=== PATIENT | female | born 1995 | race Hispanic/Latino ===

== ENCOUNTER 2022-05-29 12:39 | Outpatient (CLI) | payer OTHER, SELFPAY ==
[2022-06-02 14:46] LABS: CMV IgG Antibody <0.60 U/mL (<0.60)
== END 2022-05-29 12:40 | disposition home or self-care (01) ==
LOC: ANHLAB 12:41
PROVIDERS: Visit Provider Student in an Organized Health Care Education/Training Program
DX: N91.2 Amenorrhea, unspecified (principal)
CPT/HCPCS: 36415; 86644; 86747; 86787

== ENCOUNTER 2022-06-16 13:37 | Emergency (ER) | payer OTHER, SELFPAY ==
--- NOTE | 2022-06-16 13:43 | ED.DIZZY ---
HPI - Dizziness General Chief Complaint: Dizziness Stated Complaint: Dizziness/Vomiting/ Time Seen by Provider: 06/16/22 13:43 Source: patient Mode of arrival: ambulatory Limitations: no limitations History of Present Illness HPI Narrative: Carlita is a 27-year-old female patient presenting to the clinic today with complaints of dizziness, nausea, vomiting, headache, slight sore throat, and congestion. She reports she feels as though the room is spinning. She denies any chest pain or shortness of breath. No known fever or chills. Related Data Home Medications Medication Instructions Recorded Confirmed prenat.vits,naila,ddc-jopf-qxheg 1 tablet PO DAILY 03/18/22 06/16/22 Allergies Allergy/AdvReac Type Severity Reaction Status Date / Time Sulfa (Sulfonamide Allergy Mild Rash Verified 05/20/22 10:44 Antibiotics) Review of Systems Review of Systems: Pertinent positives per HPI. Patient denies any fever, chills, rash, visual changes, shortness of breath, chest pain, palpitations, nausea, vomiting, diarrhea, constipation, abdominal pain, or any urinary issues. [facility] Family History Family History (Updated 03/18/22 @ 10:04 by Dede Anton CMA) Other Diabetes mellitus Sibling Heart disease Asthma Social History Social History (Updated 03/18/22 @ 10:05 by Dede Anton CMA) Smoking status: Never smoker Tobacco type: e-cigarettes/vaping Alcohol intake: former Substance use: never Living arrangements: other Additional living arrangements comments: and children Occupation/Education: unemployed Gender identity (if verbalized by the patient): Female Sexual Orientation (if Verbalized by the Patient): Straight or Heterosexual Comments At the time of my signature, I reviewed and agree with the nursing past medical, surgical, social, and family history. There is no relevant family history pertinent to the patient complaint. Exam Narrative: General: Well-developed, well nourished, in no apparent distress Head: Normocephalic, atraumatic Eyes: Pupils equally round and reactive to light bilaterally, EOM intact, sclera and conjunctive clear, no discharge, lids normal Ears: TMs intact and congested, ear canals clear, no drainage, grossly hearing normal. Nose: Nares patent, clear discharge, no inflammation, no sinus tenderness. Mouth: Oropharynx red without lesions or masses, good dentition, MMM. Tongue midline, even rise and fall of uvula, postnasal drip Neck: Supple, trachea midline, no enlargement of anterior or posterior cervical nodes, no thyroid masses or goiter palpable. Cardio: Regular rate and rhythm, s1 and s2 normal, no murmur appreciated. Resp: Clear to auscultation bilaterally anteriorly and posteriorly, no rhonchi, rales, wheezing or rubs Musculoskeletal: No deformity, non-tender to palpation, grossly normal range of motion, muscle strength strong and equal, peripheral pulse strong, no edema, no cyanosis, normal gait and station Neuro: Alert and oriented x4 with normal speech, no focal deficits, cranial nerves I through XII intact, muscle strength 5 out of 5, sensation intact bilaterally, negative Romberg test Course Course Emergency Course: Portions of this record may have been created with voice recognition software. Level of Care: Express Care Visit Vital Signs Vital signs: Vital Signs Temperature 37.2 C 06/16/22 13:45 Pulse Rate 116 H 06/16/22 13:45 Respiratory Rate 16 06/16/22 13:45 Blood Pressure 108/75 06/16/22 13:45 Pulse Oximetry 98 06/16/22 13:45 Oxygen Delivery Room Air 06/16/22 13:45 Temperature 37.2 C 06/16/22 13:45 Pulse Rate 137 H 06/16/22 14:07 Respiratory Rate 16 06/16/22 13:45 Blood Pressure 105/59 L 06/16/22 14:07 Pulse Oximetry 98 06/16/22 13:45 Oxygen Delivery Room Air 06/16/22 13:45 Vital signs reviewed MDM - Dizziness MDM Narrative Medical decision making narrative: At the
[2022-06-16 13:45] VITALS: BP 108/75; PULSE 116; RESP 16; TEMP 37.2; O2SAT 98
--- NOTE | 2022-06-16 14:01 | PC.NURSE ---
heart tones doppled at 135
[2022-06-16 14:05] VITALS: BP 102/64; PULSE 89
[2022-06-16 14:06] VITALS: BP 108/69; PULSE 99
[2022-06-16 14:07] VITALS: BP 105/59; PULSE 137
[2022-06-16 14:27] LABS: Glucose Point of Care 100 mg/dl (65-105)
== END 2022-06-16 14:47 | disposition home or self-care (01) ==
PROVIDERS: Emergency Provider Nurse Practitioner Family; PCP Student in an Organized Health Care Education/Training Program
DX: E86.0 Dehydration (principal); R42 Dizziness and giddiness; N30.00 Acute cystitis without hematuria; F17.290 Nicotine dependence, other tobacco product, uncomplicated
CPT/HCPCS: 81003; 82948; 87081; 87086; 87088; 87147; 87880; 99213; G0463

== ENCOUNTER 2022-06-18 15:22 | Outpatient (CLI) | payer OTHER, SELFPAY ==
[2022-06-18 16:09] LABS: Hematocrit 33.2 % (37.0-47.0); Hemoglobin 10.9 g/dL (12.0-15.0); Mean Corpuscular HGB Conc 32.8 g/dl (32-36); Mean Corpuscular Hemoglobin 30.1 pg (26-34); Mean Corpuscular Volume 91.7 fl (80-100); Platelet Count Result 308 k/mm3 (150-375); Red Blood Count 3.62 M/mm3 (4.2-5.4); Red Cell Distribution Width 13.5 % (11.5-14.5); White Blood Count 10.6 K/mm3 (4.5-10.0)
[2022-06-18 16:54] LABS: Glucose 1 Hour PP 50gm Dose 141 mg/dL
[2022-06-18 17:00] LABS: HIV 1/2 Ab P24 Ag Result Negative (Negative)
== END 2022-06-18 15:23 | disposition home or self-care (01) ==
LOC: ANHLAB 15:23
PROVIDERS: Visit Provider Student in an Organized Health Care Education/Training Program
DX: Z34.90 Encounter for supervision of normal pregnancy, unspecified, unspecified trimester (principal); Z3A.00 Weeks of gestation of pregnancy not specified
CPT/HCPCS: 36415; 82947; 85027; 86703; G0432

== ENCOUNTER 2022-07-07 10:11 | Outpatient (CLI) | payer OTHER, SELFPAY ==
[2022-07-07 10:41] LABS: Glucose Fasting Gestational 96 mg/dL (>/=95)
[2022-07-07 12:10] LABS: Glucose 1 Hour Gest 183 mg/dL (>/=180)
[2022-07-07 13:09] LABS: Glucose 2 Hour Gest 167 mg/dL (>/= 155)
[2022-07-07 14:13] LABS: Glucose 3 Hour Gest 123 mg/dL (>/=140)
== END 2022-07-07 10:12 | disposition home or self-care (01) ==
LOC: ANHLAB 10:11
PROVIDERS: Visit Provider Student in an Organized Health Care Education/Training Program
DX: O99.810 Abnormal glucose complicating pregnancy (principal); Z3A.00 Weeks of gestation of pregnancy not specified
CPT/HCPCS: 36415; 82951; 82952

== ENCOUNTER 2022-07-30 13:00 | Outpatient (RCR) | payer OTHER, SELFPAY | END 2022-10-09 23:59 | disposition home or self-care (01) | LOC: ANHDMC 13:00 | PROVIDERS: Visit Provider Student in an Organized Health Care Education/Training Program | DX: O24.419 Gestational diabetes mellitus in pregnancy, unspecified control (principal); Z71.89 Other specified counseling | CPT/HCPCS: G0108 ==

== ENCOUNTER 2022-08-08 14:23 | Inpatient (IN) | payer OTHER, SELFPAY ==
--- NOTE | ~2022-08-08 | US_ITS ---
US OB limited DATE: 08/09/2022 10:03 INDICATION: Oligohydramnios TECHNIQUE: Real-time imaging and Doppler analysis COMPARISON: 08/08/2022 obstetrical ultrasound Limited examination and biophysical profile FINDINGS: Live melgoza intrauterine gestation, fetus in longitudinal lie, vertex presentation with heart rate of 138 bpm. Anterior placenta. Amniotic fluid index measures 5.4 cm, below the 5th percentile of 7.7 cm. This compares to 6.4 cm amn iotic fluid index measurement on 08/08/2022. IMPRESSION: Amniotic fluid index measures 5.4 cm, below the 5th percentile OUMOU of 7.7 cm Reviewed, dictated and finalized at Location A. Reviewed, dictated and finalized at location A.
[2022-08-08 16:02] VITALS: BP 107/64; PULSE 117
[2022-08-08] MEDS: LACTATED RINGERS 1,000 ML 125 ML IV CONT (17:20)
[2022-08-08 17:27] VITALS: BMI 37.7
--- NOTE | 2022-08-08 17:29 | OBADM ---
This patient, Carlita Wise, admitted to the OB room 116 for observation. Patient/family oriented to hospital policies and general routines including ID bracelet, bed and alarms, visiting hours, pain management, procedures, bathroom and other care routines, personal items, smoking policy, room service/diet, and visiting hours. Patient/Family are encouraged to report perceived risks to care and to ask questions if they do not understand what they are told or what they should do.
[2022-08-08 18:38] VITALS: TEMP 36.3
[2022-08-08 19:24] LABS: Glucose Point of Care 96 mg/dl (65-105)
[2022-08-08] MEDS: FAMOTIDINE 20 MG/2 ML VIAL IV PUSH (21:53)
[2022-08-08] MEDS: metFORMIN HCL XR 500 MG TAB.SR.24H PO (21:54)
[2022-08-08 21:56] VITALS: BP 134/83; PULSE 70
[2022-08-08 21:57] VITALS: BP 134/83; PULSE 70; TEMP 36.9
[2022-08-09] VITALS (40 sets, daily range): BP systolic 84–148; BP diastolic 22–108; PULSE 60–116; RESP 16–18; TEMP 36.3–37.1; O2SAT 98–99
[2022-08-09] MEDS: LACTATED RINGERS 1,000 ML 125 ML IV CONT ×2 (01:20→11:44)
[2022-08-09 06:43] LABS: Glucose Point of Care 95 mg/dl (65-105)
[2022-08-09 09:25] LABS: Glucose Point of Care 106 mg/dl (65-105)
--- NOTE | 2022-08-09 09:50 | PC.NURSE ---
Pt denies heartburn and doesn't want Pepcid at this time. Off monitor and to U/S per wheelchair.
--- NOTE | 2022-08-09 10:30 | PC.NURSE ---
Dr. Corado informed OUMOU was 5.4 cm. Orders received for admission for induction of labor.
--- NOTE | 2022-08-09 10:35 | PC.NURSE ---
Pt informed the fluid around baby is still low and Dr. Corado wants to induce her labor. See OBIX for further documentation.
--- NOTE | 2022-08-09 11:07 | LDADM ---
This patient, Carlita Wise, was admitted transferred to Labor/Delivery/Recovery 109. Plans for labor, pain management and were discussed with patient. Patient/family oriented to hospital policies and general routines including ID bracelet, bed and alarms, visiting hours, pain management, procedures, bathroom and other care routines, personal items, smoking policy, room service/diet and guest tray routines, security routines, and visiting hours. Patient/Family are encouraged to report perceived risks to care and to ask questions if they do not understand what they are told or what they should do. See OBIX for further documentation.
[2022-08-09] MEDS: OXYTOCIN 30 UNITS/NS 500 ML 30 UNITS/500 ML BAG IV CONT (11:45)
[2022-08-09 11:53] LABS: Basophils Absolute Auto 0.1 K/mm3 (0.0-0.1); Basophils Percent Auto 0.5 % (0.2-1.2); Eosinophils Absolute Auto 0.2 K/mm3 (0-0.3); Eosinophils Percent Auto 1.9 % (0-4.4); Hematocrit 29.5 % (37.0-47.0); Hemoglobin 9.4 g/dL (12.0-15.0); Immature Granulocyte Absolute 0.06 K/mm3 (0.00-0.031); Immature Granulocyte Percent A 0.6 % (0-0.5); Lymphocytes Absolute Auto 2.32 K/mm3 (0.9-3.2); Lymphocytes Percent Auto 23.2 % (18.3-44.2); Mean Corpuscular HGB Conc 31.9 g/dl (32-36); Mean Corpuscular Hemoglobin 28.5 pg (26-34); Mean Corpuscular Volume 89.4 fl (80-100); Mean Platelet Volume 9.5 fl (7.4-10.4); Monocytes Absolute Auto 0.8 K/mm3 (0.1-0.6); Neutrophils Absolute Auto 6.6 K/mm3 (1.3-6.7); Neutrophils Percent Auto 65.8 % (45.5-73.1); Platelet Count Result 246 k/mm3 (150-375)
[2022-08-09] MEDS: AMPICILLIN 2 GM/NS 100 ML 2 GM/100 ML BAG IVPB (12:00)
[2022-08-09 15:32] LABS: Glucose Point of Care 120 mg/dl (65-105)
[2022-08-09] MEDS: AMPICILLIN 1 GM/NS 50 ML 1 GM/50 ML BAG IVPB ×2 (16:06→20:04)
--- NOTE | 2022-08-09 17:11 | WPDANESEPP ---
Anes - Eval Pre Procedure Procedure: labor epidural Date/Time: 08/09/22 17:11 Surgeon: hannah Preop Diagnosis: pain during labor Pre Op Diagnosis: Oligohydramnios Patient Data Age: 27 Gender: F Height: 1.52 m Weight: 87.6 kg Last Vital Signs Temp 36.7 C 08/09/22 16:00 Pulse 81 08/09/22 16:30 Resp 18 08/09/22 16:00 BP 127/76 08/09/22 16:30 Pulse Ox 98 08/09/22 07:06 O2 Del Method Room Air 08/09/22 13:14 Allergies Allergy/AdvReac Type Severity Reaction Status Date / Time Sulfa (Sulfonamide Allergy Mild Rash Verified 08/06/22 09:22 Antibiotics) Home Medications Medication Instructions Recorded Confirmed Type prenat.vits,naila,fdg-cbym-wxesp 1 tablet PO DAILY 03/18/22 08/08/22 History metformin 500 mg tablet,extended 500 mg PO QPM #30 tabs 07/24/22 08/08/22 Rx release 24 hr Laboratory Tests 08/08/22 08/09/22 08/09/22 19:19 06:39 09:21 WBC RBC Hgb Hct MCV MCH MCHC RDW Plt Count MPV Immature Gran % (Auto) Neut % (Auto) Lymph % (Auto) Gooding % (Auto) Eos % (Auto) Baso % (Auto) Lymph # (Auto) Gooding # (Auto) Eos # (Auto) Baso # (Auto) Abs Immat Gran (auto) Absolute Neuts (auto) Absolute Nucleated RBC Nucleated RBC % POC Capillary Glucose 96 mg/dl 95 mg/dl 106 H mg/dl (65-105) (65-105) (65-105) RPR Blood Type Antibody Screen 08/09/22 08/09/22 11:48 15:29 WBC 10.0 K/mm3 (4.5-10.0) RBC 3.30 L M/mm3 (4.2-5.4) Hgb 9.4 L g/dL (12.0-15.0) Hct 29.5 L % (37.0-47.0) MCV 89.4 fl (80-100) MCH 28.5 pg (26-34) MCHC 31.9 L g/dl (32-36) RDW 14.0 % (11.5-14.5) Plt Count 246 k/mm3 (150-375) MPV 9.5 fl (7.4-10.4) Immature Gran % (Auto) 0.6 H % (0-0.5) Neut % (Auto) 65.8 % (45.5-73.1) Lymph % (Auto) 23.2 % (18.3-44.2) Gooding % (Auto) 8.0 % (2.6-8.5) Eos % (Auto) 1.9 % (0-4.4) Baso % (Auto) 0.5 % (0.2-1.2) Lymph # (Auto) 2.32 K/mm3 (0.9-3.2) Gooding # (Auto) 0.8 H K/mm3 (0.1-0.6) Eos # (Auto) 0.2 K/mm3 (0-0.3) Baso # (Auto) 0.1 K/mm3 (0.0-0.1) Abs Immat Gran (auto) 0.06 H K/mm3 (0.00-0.031) Absolute Neuts (auto) 6.6 K/mm3 (1.3-6.7) Absolute Nucleated RBC 0.0 K/mm3 (0.0-0.012) Nucleated RBC % 0.0 % (0.0-0.2) POC Capillary Glucose 120 H mg/dl (65-105) RPR Pending Blood Type O Positive Antibody Screen Negative Patient hx anesthesia problems: none Family hx anesthesia problems: none Results Review: All pre-operative results and documents have been reviewed as part of the pre-operative evaluation. [facility] [place] Past Medical History Medical History (Updated 08/09/22 @ 17:12 by Edith Graf CRNA) Abnormal glucose tolerance in Gestational diabetes Family History Family History Other Diabetes mellitus Sibling Heart disease Asthma Social History Social History Smoking status: Never smoker Tobacco type: e-cigarettes/vaping Second hand tobacco smoke exposure: No Alcohol intake: former Substance use: never Lack of Transportation: No Lack of Food: Never True Current Housing: I Have Housing Concerned About Future Housing: No Difficulty Paying Gas/Electric Bills: No Difficulty Paying for Meds: No Currently Unemployed: No Education: High School Diploma/GED Difficulty w/ Childcare or Family Care: No Living arrangements: other Additional living arrangeme
[2022-08-09] MEDS: fentaNYL CITRATE INJ (*CRX) 100 MCG/2 ML VIAL 50 MCG IV PUSH (18:43)
[2022-08-09] MEDS: SODIUM CHLORIDE 0.9% IV 300 ML 600 ML I-UTERINE (19:34)
[2022-08-09 20:13] LABS: Glucose Point of Care 90 mg/dl (65-105)
--- NOTE | 2022-08-09 20:36 | P.PCNOB_ITS ---
OB - Delivery Note Procedure Events: Oligohydramnios Induction method: Per Pitocin Protocol Delivery augmentation: Rupture of Membranes Delivery monitor: External FHT and External Uterine Route of delivery: Episiotomy description: None Laceration Description: None Specimen: Yes Quantitative Blood Loss (ml): 100 Anesthesia type: None Disposition: Floor Complications: none Narrative: patient prepped and delivered over intact perineum. Cord clamped cut and the placenta delivered spontaneously. Cervix vagina vulva were inspected with no lacerations or tears. Uterus was well contracted with no bleeding. Immediate condition of mother and baby both were excellent. [place] Baby Weeks of gestation at delivery: 36 Infant gender: Male Weight (pounds): 5 Weight (ounces): 13 presentation: vertex Placenta delivery description: Spontaneous Cord Vessel Description: 3 Vessels score one minute: 9 score five minutes: 9 AMG Delivery Billing Delivery Delivery: Delivery Charge
--- NOTE | 2022-08-09 20:36 | WPDHPUPDATE1 ---
History and Physical Update Update Date/Time: 08/09/22 20:36 History and Physical has been reviewed, including an updated exam of the patient. There are NO changes in the patient's condition. Risks, benefits, and alternatives have been discussed and questions answered. Patient agrees to proceed with procedure.
--- NOTE | 2022-08-09 20:36 | WPDOBADMIT ---
Obstetrics - Admit Note Admission Note: record reviewed. No pertinent additions to the history and/or any subsequent changes in the physical findings that are not consistent with the expected course of the were found. Additions to the history and/or subsequent changes in the physical findings follow. None.
[2022-08-09] MEDS: OXYTOCIN 30 UNITS/NS 500 ML 30 UNITS/500 ML BAG 125 UNITS IV CONT (21:01)
[2022-08-09] MEDS: WITCH HAZEL 40 PADS 1 PAD TOPICAL (22:35)
[2022-08-09] MEDS: BENZOCAINE 20% AER SPR (*SP) 56 GM CAN 1 SPRAY TOPICAL (22:35)
[2022-08-09] MEDS: IBUPROFEN 600 MG TABLET PO (23:10)
[2022-08-10] MEDS: ACETAMINOPHEN 325 MG TABLET 650 MG PO ×3 (00:27→17:28)
[2022-08-10 03:40] VITALS: BP 99/54; PULSE 84; RESP 16; TEMP 36.8; O2SAT 99
[2022-08-10 05:06] LABS: Hemoglobin 8.3 g/dL (12.0-15.0)
[2022-08-10] MEDS: BENZOCAINE 20% AER SPR (*SP) 56 GM CAN 1 SPRAY TOPICAL (06:47)
[2022-08-10] MEDS: WITCH HAZEL 40 PADS 1 PAD TOPICAL (06:48)
[2022-08-10 08:00] VITALS: BP 106/60; PULSE 66; RESP 18; TEMP 36.6
[2022-08-10] MEDS: DOCUSATE SODIUM 100 MG CAPSULE PO ×2 (08:06→17:28)
[2022-08-10] MEDS: MULTIVIT/MIN/PREN/FOL AC/IRON TABLET 1 TAB PO (08:06)
[2022-08-10] MEDS: POLYSACCHARIDE IRON COMPLEX 150 MG CAPSULE PO ×2 (08:06→17:28)
[2022-08-10] MEDS: IBUPROFEN 600 MG TABLET PO ×2 (08:07→17:27)
[2022-08-10] MEDS: TETANUS,DIPHTHERIA,AC PERTUSSIS ADULT (0.5 ML) BOOSTRIX IM (08:08)
--- NOTE | 2022-08-10 09:55 | PM.OBDSVD ---
DS: Admitting Diagnosis Discharge Date 08/11/2022 Admitting Diagnosis DS: Discharge Diagnosis Discharge Diagnosis (1) , delivered: Code(s): O80 - Encounter for full-term uncomplicated delivery Status: Acute OB - DS: Summary OB Procedures : Other ( 1. Gestational diabetes) OB Procedures Intrapartum: Spontaneous Vag Delivery OB Procedures: : None Time Spent with Patient Time attestation: Total time spent providing and/or coordinating discharge services: DS: Data Data Completed and Pending Pending studies at discharge: Pending at discharge 08/09/22 20:28 Surgical [PTH] Routine Labs on day of discharge: Labs from last 24 hours 08/10/22 08/09/22 08/09/22 03:47 19:42 15:29 WBC RBC Hgb 8.3 L Hct 26.0 L MCV MCH MCHC RDW Plt Count MPV Immature Gran % (Auto) Neut % (Auto) Lymph % (Auto) Schleicher % (Auto) Eos % (Auto) Baso % (Auto) Lymph # (Auto) Schleicher # (Auto) Eos # (Auto) Baso # (Auto) Abs Immat Gran (auto) Absolute Neuts (auto) Absolute Nucleated RBC Nucleated RBC % POC Capillary Glucose 90 120 H RPR Blood Type Antibody Screen 08/09/22 11:48 WBC 10.0 RBC 3.30 L Hgb 9.4 L Hct 29.5 L MCV 89.4 MCH 28.5 MCHC 31.9 L RDW 14.0 Plt Count 246 MPV 9.5 Immature Gran % (Auto) 0.6 H Neut % (Auto) 65.8 Lymph % (Auto) 23.2 Schleicher % (Auto) 8.0 Eos % (Auto) 1.9 Baso % (Auto) 0.5 Lymph # (Auto) 2.32 Schleicher # (Auto) 0.8 H Eos # (Auto) 0.2 Baso # (Auto) 0.1 Abs Immat Gran (auto) 0.06 H Absolute Neuts (auto) 6.6 Absolute Nucleated RBC 0.0 Nucleated RBC % 0.0 POC Capillary Glucose RPR Pending Blood Type O Positive Antibody Screen Negative Discharge Plan Discharge Discharging Clinician: Willie Corado Patient Disposition: Home, Self-Care Activity: as tolerated Diet: as tolerated Patient Instructions: Antibiotic Form Stand Alone Forms: General Discharge Information Follow-up/Referrals: Deepak Conley MD [Physician] - 3 Weeks Discharge Medications: Continued prenat.vits,naila,yqi-veuq-uzkhu Tablet 1 tablet PO DAILY Discontinued metformin 500 mg tablet extended release 24 hr 500 mg PO QPM Qty: 30 2RF Date of admission: 08/09/22 10:24 Primary Care Provider: PHYSICIAN,HAND MEAT SALTER Admitting Provider: Deepak Conley Attending physician on admission: Deepak Conley Condition: Stable
[2022-08-10 13:00] VITALS: BP 93/56; PULSE 84; RESP 18; TEMP 36.9
[2022-08-10 21:31] VITALS: BP 101/60; PULSE 84; RESP 18; TEMP 37; O2SAT 97
[2022-08-11] MEDS: ACETAMINOPHEN 325 MG TABLET 650 MG PO ×2 (02:36→08:44)
[2022-08-11] MEDS: IBUPROFEN 600 MG TABLET PO ×2 (02:37→08:43)
[2022-08-11 08:00] VITALS: PULSE 70; RESP 18; O2SAT 100
[2022-08-11 08:05] VITALS: BP 107/65; PULSE 70; RESP 18; TEMP 37.1; O2SAT 100
[2022-08-11 08:05] LABS: Rapid Plasma Reagin Non-Reactive (NonReactive)
[2022-08-11] MEDS: MULTIVIT/MIN/PREN/FOL AC/IRON TABLET 1 TAB PO (08:43)
[2022-08-11] MEDS: POLYSACCHARIDE IRON COMPLEX 150 MG CAPSULE PO (08:43)
[2022-08-11] MEDS: DOCUSATE SODIUM 100 MG CAPSULE PO (08:43)
--- NOTE | 2022-08-11 09:18 | PC.NURSE ---
[id number] Introductions were made, then consulted with patient to assess needs related to . Mother led the conversation with her?plans to feed?her infant and the?experience so far. Mother is sitting with her swaddled in her lap. Resources provided for inpatient and outpatient services with the mom/baby guide. Mother verbalizes she is able to independently latch infant without pain and has breastfed her other children the female 2.5 years. Infant is currently meeting outcomes for weight, output, jaundice and feeding frequencies of 8-12 times in 24 hours. had blood sugar checked related to over 6 hours without a breastfeed. Blood sugar resulted at 61mg/dl. Mother is feeding appropriately for growth of infant over a 24 hour period and is educated to stimulate infant to eat if needed. Reviewed the late care, behaviors, and the differences of that and a term which mother is accustomed to. has had adequate feedings in the last 24 hours meets the outcomes for weight, output and jaundice at this time. Mother states infant fed a lot during the night. Infant was latched to the left breast with a modified cross cradle position independently by mother. When detached and went to sleep mother's nipple was not misshaped and she encouraged to wake and breastfeed, then infant re-latched with a big, open wide gape. Reviewed with mother the signs of good rocking motion and swallowing by visualization and listening. At times infant latches shallow, then mother demonstrates how to stimulate and attach infant with an effective latch. Mother states she is confident to continue effectively her infant at home, when to call for assistance and denies any additional assistance or education at this time. Reinforced understanding of milk production, transition of milk, signs of adequate intake, transition of stool, prevention/relief of engorgement, responsive watching for feeding cues, the different methods of stimulating infant to breastfeed 2-3 hours after the start of the last feeding, community resources, medication information reviewed per [facility] and when to call a provider using the resource of the mom and baby guide/[facility] website. Mother voiced understanding of the education shared. Reported to the primary RN.
--- NOTE | 2022-08-11 14:34 | PC.NURSE ---
Patient viewed the discharge video Mother & Baby Care, The First Two Weeks . Patient was given the opportunity and encouraged to ask questions. Patient verbalized understanding of information shared and has been given the mother/baby guide for home reference.
== END 2022-08-11 15:20 | disposition home or self-care (01) | DRG 560 ==
LOC: ANHOBPP 08-10 06:02 → ANHOB2 08-10 09:56 → ANHLDR 08-12 10:48 → ANHOB2 08-12 10:48
PROVIDERS: Admitting Provider Student in an Organized Health Care Education/Training Program; Visit Provider Obstetrics & Gynecology
DX: O41.03X0 Oligohydramnios, third trimester, not applicable or unspecified (principal); O24.429 Gestational diabetes mellitus in childbirth, unspecified control; Z37.0 Single live birth; Z3A.35 35 weeks gestation of pregnancy
CPT/HCPCS: 36415; 59025; 76815; 82948; 85014; 85018; 85025; 86592; 86850; 86900; 86901; 88307; 90715; A9270; J0290; J2590; J3010; J7030; J7120

== ENCOUNTER 2022-08-08 14:23 | Outpatient (RCR) | payer OTHER, SELFPAY ==
[2022-07-25 13:28] VITALS: BP 111/56; PULSE 95
--- NOTE | 2022-07-25 13:40 | PC.NURSE ---
1340: Dr. Conley phoned. No answer at this time.
[2022-07-29 13:32] VITALS: BP 106/62; PULSE 92
[2022-08-01 14:08] VITALS: BP 107/66; PULSE 89
[2022-08-01 14:31] VITALS: BP 110/63; PULSE 93
[2022-08-01 15:00] VITALS: BP 110/63; PULSE 93
[2022-08-05 11:59] VITALS: BP 120/67; PULSE 88
--- NOTE | ~2022-08-08 | US_ITS ---
EXAMINATION: US OB BPP wo non-stress DATE: 07/25/2022 13:54 INDICATION: Gestational diabetes. Third trimester. TECHNIQUE: Real-time pelvic ultrasound was performed. COMPARISON: None. FINDINGS: There is a single living fetus in vertex presentation. The placenta is anterior. heart rate is 126 beats per minute (bpm). Biophysical profile performed by the technologist: breathing (30 sec sustained breathing in 30 minutes): 2 out of 2 movement (3 gross body movements in 30 minutes): 2 out of 2 tone (one episode of ftokvti-hudqlsivr-zxnknub limb movement): 2 out of 2 Amniotic fluid pocket (2 cm): 2 out of 2 Total score: 8 out of 8 IMPRESSION: 1. Single living fetus in vertex presentation. 2. Biophysical profile 8 out of 8. Reviewed, dictated and finalized at location A.
--- NOTE | ~2022-08-08 | US_ITS ---
EXAMINATION: US OB BPP wo non-stress DATE: 08/01/2022 14:53 INDICATION: Gestational diabetes, third trimester TECHNIQUE: Real-time pelvic ultrasound was performed. The interpreting radiologist was not present fo r the study. COMPARISON: 07/25/2022 FINDINGS: There is a single living fetus in vertex presentation. The placenta is anterior. heart rate is 150 beats per minute (bpm). Biophysical profile performed by the technologist: breathing (30 sec sustained breathing in 30 minutes): 2 out of 2 movement (3 gross body movements in 30 minutes): 2 out of 2 tone (one episode of cczgpkv-nsopedudy-yjchrqv limb movement): 2 out of 2 Amniotic fluid pocket (2 cm): 2 out of 2 Total score: 8 out of 8 IMPRESSION: 1. Single living fetus in vertex presentation. 2. Biophysical profile 8 out of 8. Reviewed, dictated and finalized at location A.
--- NOTE | ~2022-08-08 | US_ITS ---
EXAMINATION: US OB limited w BPP DATE: 08/08/2022 15:39 INDICATION: OUMOU and BPP for gestational diabetes. TECHNIQUE: Real-time ultrasound of the pelvis was performed. COMPARISON: 08/01/2022. FINDINGS: There is a single living fetus in vertex presentation, longitudinal lie. The cervix is closed and charlene sures 3.3 cm. The placenta is anterior. heart rate is 165 beats per minute. The amniotic fluid index is 6.4 cm, which is low (5th to 95th percentile is 7.7 to 24.9 cm). Biophysical profile performed by the technologist: breathing (30 sec sustained breathing in 30 minutes): 2 out of 2 movement (3 gross body movements in 30 minutes: 2 out of 2 tone (one episode of zmsyqfp-ywxwjwdxy-euunrkv limb movement): 2 out of 2 Amniotic fluid pocket (2 cm): 2 out of 2 Total score: 8 out of 8 IMPRESSION: 1. Single living fetus in vertex presentation. heart rate 165 bpm. 2. Oligohydramnios. OUMOU 6.4 cm. 3. Biophysical profile 8 out of 8. Reviewed, dictated and finalized at location K.
== END 2022-09-29 13:03 | disposition home or self-care (01) ==
LOC: ANHOBOP 14:23
PROVIDERS: Visit Provider Student in an Organized Health Care Education/Training Program
DX: O24.913 Unspecified diabetes mellitus in pregnancy, third trimester (principal); Z3A.33 33 weeks gestation of pregnancy
CPT/HCPCS: 59025; 76815; 76819

== ENCOUNTER 2022-09-29 19:35 | Emergency (ER) | payer OTHER, SELFPAY ==
[2022-09-29 19:46] VITALS: BP 116/65; PULSE 91; RESP 16; TEMP 36.4; O2SAT 98
--- NOTE | 2022-09-29 19:47 | ED.GENADULT ---
HPI - General Adult General Chief complaint: Unspecified Stated complaint: Left Eye Drainage and Face Numbness Source: patient and RN notes reviewed Mode of arrival: ambulatory Limitations: no limitations History of Present Illness HPI narrative: 27-year-old female presented for complaint of left eye clear drainage and left sided facial numbness x3 days. Has metal taste in mouth and reports the roof of mouth feels numb. States symptoms started the day after applying 2 lidocaine patches to her upper back for pain. Denies vision changes, photophobia, swelling, headaches, weakness, n/v/d/f/c. Denies recent illness. Patient is 6 weeks , currently . LMP 10 months. Related Data Home Medications Medication Instructions Recorded Confirmed [id number] 400 mcg-om3 35 mg-dha 25 1 tablet PO DAILY 09/29/22 09/29/22 mg-epa 5 mg-fish oil chewable tablet Allergies Allergy/AdvReac Type Severity Reaction Status Date / Time Sulfa (Sulfonamide Allergy Mild Rash Verified 09/29/22 19:39 Antibiotics) Review of Systems Review of Systems: CONSTITUTIONAL: Denies body aches, fever, chills, or sweats. EYES: Reports difficulty closing eye and clear drainage Denies visual changes, redness, or prurulent discharge. ENT: Denies rhinorrhea, congestion, sore throat, or otalgia. CARDIOVASCULAR: Denies chest pain, palpitations, or edema. RESPIRATORY: Denies cough or dyspnea. GASTROINTESTINAL: Denies abdominal pain, nausea, vomiting, or diarrhea. GENITOURINARY: Denies dysuria or hematuria. SKIN: Denies rash, itching, or wounds. MUSCULOSKELETAL: Denies back pain, joint pain, or myalgia. NEUROLOGIC: Denies headache, dizziness reports left facial numbness PSYCH: Denies depression or anxiety. All systems reviewed & are unremarkable except as noted in HPI and below PMFSH Past Medical History Medical History Abnormal glucose tolerance in Gestational diabetes Family History Family History Other Diabetes mellitus Sibling Heart disease Asthma Social History Social History Smoking status: Never smoker Tobacco type: e-cigarettes/vaping Second hand tobacco smoke exposure: No Alcohol intake: former Substance use: never Lack of Transportation: No Lack of Food: Never True Current Housing: I Have Housing Concerned About Future Housing: No Difficulty Paying Gas/Electric Bills: No Difficulty Paying for Meds: No Currently Unemployed: No Education: High School Diploma/GED Difficulty w/ Childcare or Family Care: No Living arrangements: other Additional living arrangements comments: and children Occupation/Education: unemployed Gender identity (if verbalized by the patient): Female Sexual Orientation (if Verbalized by the Patient): Straight or Heterosexual Spiritual care concerns: No Comments At time of signature, I have reviewed and agree with nursing past medical, surgical, social and family history unless otherwise noted. Please see nursing chart for further information. There is no relevant family history pertinent to the presenting complaint Exam Narrative: GENERAL: Well-appearing HEAD: Normocephalic, atraumatic. EYES: PERRLA, EOMI. Left eye does not close completely, clear drainage. ENT: Mucous membranes pink and moist. No rhinorrhea. TMs normal bilaterally. NECK: Normal AROM. Supple. No lymphadenopathy. CHEST: No respiratory distress. Clear to auscultation. HEART: Regular rate and rhythm. No murmur appreciated. Normal peripheral pulses. ABDOMEN: Soft, nontender, nondistended, normal active bowel sounds. MUSCULOSKELETAL: No bony tenderness. EXTREMITIES: Normal range of motion. No edema. SKIN: Warm, dry, no rash. Capillary refill normal. Normal skin turgor. NEURO:No focal deficit
[2022-09-29 19:52] LABS: Glucose Point of Care 126 mg/dl (65-105)
== END 2022-09-29 20:40 | disposition short-term general hospital (02) ==
PROVIDERS: Emergency Provider Nurse Practitioner Family
DX: R20.0 Anesthesia of skin (principal)
CPT/HCPCS: 82948; 99212; G0463

== ENCOUNTER 2022-09-29 21:48 | Observation (INO) | payer OTHER, SELFPAY ==
--- NOTE | ~2022-09-29 | MR_ITS ---
EXAMINATION: MR brain/brain stem wo con DATE: 09/30/2022 08:40 INDICATION: Facial weakness. TECHNIQUE: Magnetic resonance imaging (MRI) of the brain and brainstem was performed without intraven ous contrast. COMPARISON: Head CT 09/29/2022 FINDINGS: There is no intracranial hemorrhage, acute infarction, or abnormal intracranial mass lesion . The ventricles are normal in size. There is a mucous retention cyst in right maxillary sinus. The o rbits are normal. The mastoid air cells are normal. IMPRESSION: 1. Normal brain. Reviewed, dictated and finalized at location A. IMPRESSION: 1. Normal brain.
--- NOTE | ~2022-09-29 | CT_ITS ---
EXAMINATION: CT brain wo con DATE: 09/29/2022 22:14 INDICATION: rule out stroke . TECHNIQUE: Computed tomography (CT) of the head was performed with intravenous contrast. The mA was a djusted according to patient size. Iterative reconstruction technique was employed. The dose-length p roduct was 605.33 mGy-cm. COMPARISON: None. FINDINGS: No acute intracranial hemorrhage or extra-axial fluid collection. No hydrocephalus, mass, or herniation. No acute ischemic infarct. Unremarkable dural venous sinus attenuation. No acute osseous abnormality. The aerated spaces are clear. Asymmetric subcentimeter hypodensity in the left hippocampal gyrus (coronal image 38 and 39/81, axial image 23/64). IMPRESSION: Subcentimeter hypodensity in the left hippocampal gyrus, may represent a small focus of subacute or c hronic encephalomalacia versus artifact from asymmetric visualization of an inferior sulcus. Recommen d comparison to outside studies if available. Consider MR of the brain with and without for further c haracterization. Otherwise unremarkable CT brain findings Reviewed, dictated and finalized at location K. IMPRESSION: Subcentimeter hypodensity in the left hippocampal gyrus, may represent a small focus of subacute or chronic encephalomalacia versus artifact from asymmetric v isualization of an inferior sulcus. Recommend comparison to outside studies if available. Consider MR of the brain with and without for further characterizati on. Otherwise unremarkable CT brain findings
--- NOTE | ~2022-09-29 | CT_ITS ---
EXAMINATION: CT soft tissue neck wo con DATE: 09/30/2022 02:11 INDICATION: Neck swelling. TECHNIQUE: Computed tomography (CT) of the neck was performed with 75 mL Omnipaque-350 intravenous co ntrast. Automated exposure control and iterative reconstruction technique were employed. The dose-antonette gth product was 572.49 mGy-cm. COMPARISON: None FINDINGS: There is a calcification in the right palatine tonsil. The epiglottis is normal. There are no pathologically enlarged lymph nodes. There is a mucous retention cyst in right maxillary sinus. Th e mastoid air cells are normal. The bones are unremarkable. IMPRESSION: 1. No etiology for the patient's symptoms. Reviewed, dictated and finalized at location A.
[2022-09-29 21:52] VITALS: BP 116/77; PULSE 87; RESP 14; TEMP 36.4; O2SAT 100
[2022-09-30 00:23] VITALS: BP 112/72; PULSE 64; RESP 15; TEMP 36.7; O2SAT 98
[2022-09-30 00:25] VITALS: PULSE 80
--- NOTE | 2022-09-30 00:37 | ED.GENADULT ---
HPI - General Adult General Chief complaint: Neuro Symptoms/Deficit Stated complaint: L sided weakness/ facial droop Time Seen by Provider: 09/30/22 00:17 History of Present Illness HPI narrative: This is a 27-year-old female presenting with 3 days of left-sided facial paresthesias/weakness. Patient also notes that she is not able to close her left eye completely. Patient denies numbness tingling weakness to any extremity. She denies any fever chills, viral illness or oral ulcers. Denies difficulty urinating or eye pain. Patient never had this happen before. Patient was sent from urgent care for evaluation. Last known normal 3 days ago. Related Data Home Medications Medication Instructions Recorded Confirmed [id number] 400 mcg-om3 35 mg-dha 25 1 tablet PO DAILY 09/29/22 09/29/22 mg-epa 5 mg-fish oil chewable tablet Allergies Allergy/AdvReac Type Severity Reaction Status Date / Time Sulfa (Sulfonamide Allergy Mild Rash Verified 09/29/22 19:39 Antibiotics) [facility] Past Medical History Medical History Abnormal glucose tolerance in Gestational diabetes Family History Family History Other Diabetes mellitus Sibling Heart disease Asthma Social History Social History Smoking status: Never smoker Tobacco type: e-cigarettes/vaping Second hand tobacco smoke exposure: No Alcohol intake: former Substance use: never Lack of Transportation: No Lack of Food: Never True Current Housing: I Have Housing Concerned About Future Housing: No Difficulty Paying Gas/Electric Bills: No Difficulty Paying for Meds: No Currently Unemployed: No Education: High School Diploma/GED Difficulty w/ Childcare or Family Care: No Living arrangements: other Additional living arrangements comments: and children Occupation/Education: unemployed Gender identity (if verbalized by the patient): Female Sexual Orientation (if Verbalized by the Patient): Straight or Heterosexual Spiritual care concerns: No Exam Narrative: APPEARANCE: No apparent distress. Head: atraumatic. EYES: EOMI, NOSE: Atraumatic NECK: Trachea midline RESPIRATORY: No increased rate of breathing CARDIOVASCULAR: RRR, ABDOMINAL: Non-distended MUSCULOSKELETAl: No obvious deformities NEURO: Alert. The left eye inferior lid does not close completely on eye closure. Slight down turn the left oral commissure. Decreased sensation over Left CN V2V3 distribution. Sparing of the forehead. Sensation light touch, motor function cerebellar function intact for 4 extremities. Gait exam was normal. SKIN:: Warm, dry. Normal color PSYCHIATRIC: Normal affect NIH Stroke Scale/Score (NIHSS) from [employer] on 09/30/2022 All calculations should be rechecked by clinician prior to use RESULT SUMMARY: 2 points NIH Stroke Scale INPUTS: 1A: Level of consciousness ?> 0 = Alert; keenly responsive 1B: Ask month and age ?> 0 = Both questions right 1C: 'Blink eyes' & 'squeeze hands' ?> 0 = Performs both tasks 2: Horizontal extraocular movements ?> 0 = Normal 3: Visual marroquin ?> 0 = No visual loss 4: Facial palsy ?> 1 = Minor paralysis (flat nasolabial fold, smile asymmetry) 5A: Left arm motor drift ?> 0 = No drift for 10 seconds 5B: Right arm motor drift ?> 0 = No drift for 10 seconds 6A: Left leg motor drift ?> 0 = No drift for 5 seconds 6B: Right leg motor drift ?> 0 = No drift for 5 seconds 7: Limb Ataxia ?> 0 = No ataxia 8: Sensation ?> 1 = Mild-moderate loss: can sense being touched 9: Language/aphasia ?> 0 = Normal; no aphasia 10: Dysarthria ?> 0 = Normal 11: Extinction/inattention ?> 0 = No abnormality Course Vital Signs Vital signs: Vital Signs Temperature 97.6 F 09/29/22 21:52 Pulse Rate 87 09/29/22 21:52 Respiratory
--- NOTE | 2022-09-30 00:49 | ECG_ITS ---
Measurements Intervals [place] Rate: 64 P: 27 UT: 133 QRS: 41 QRSD: 90 T: 19 QT: 390 QTc: 403 Interpretive Statements SINUS RHYTHM NO PREVIOUS ECG AVAILABLE FOR COMPARISON Electronically Signed On 09-30-2022 14:38:19 CDT by Boom Hammond M.D.
--- NOTE | 2022-09-30 00:56 | PM.IMHP ---
H&P: HPI History of Present Illness Date/Time: 09/30/22 00:56 Chief Complaint: LEFT FACE NUMBNESS Narrative: This is a 27-year-old female with no significant past medical history is at for gestational diabetes patient is . Comes to the hospital after 3 days of left-sided facial swelling unable to close her eyelids tearing and pain in the neck. Patient denies any odynophagia, fevers, rigors, chills, no dysphagia, no throat pain, no changes of her vision, no left upper extremity weakness. PRELIMINARY WORKUP WAS SIGNIFICANT FOR CT OF THE HEAD WITH AREA OF ENCEPHALOMALACIA IN THE LEFT HIPPOCAMPUS. PATIENT IS BEING PLACED IN OBSERVATION FOR FURTHER EVALUATION MANAGEMENT AND TREATMENT. EXAMINATION: CT brain wo con DATE: 09/29/2022 22:14 INDICATION: rule out stroke . TECHNIQUE: Computed tomography (CT) of the head was performed with intravenous contrast. The mA was adjusted according to patient size. Iterative reconstruction technique was employed. The dose-length product was 605.33 mGy-cm. COMPARISON: None. FINDINGS: No acute intracranial hemorrhage or extra-axial fluid collection. No hydrocephalus, mass, or herniation. No acute ischemic infarct. Unremarkable dural venous sinus attenuation. No acute osseous abnormality. The? aerated spaces are clear. Asymmetric subcentimeter hypodensity in the left hippocampal gyrus (coronal image 38 and 39/81, axial image 23/64). IMPRESSION:? Subcentimeter hypodensity in the left hippocampal gyrus, may represent a small focus of subacute or chronic encephalomalacia versus artifact from asymmetric visualization of an inferior sulcus. Recommend comparison to outside studies if available. Consider MR of the brain with and without for further characterization. Otherwise unremarkable CT brain findings Review of Systems Review of Systems: LEFT FACE NUMBNESS, INABILITY TO CLOSE EYES LIDS OF THE LEFT SIDE, NECK AND FACE SWELLING AND PAIN. Constitutional: Constitutional: Denies chills, Denies fatigue, Denies fever(s), Denies malaise, Denies night sweats, Denies poor appetite and Denies weakness Eyes: Eyes: Denies change in vision, Denies diplopia and Reports irritation (L) ENT: Denies dysphagia, Denies vertigo, Denies dizziness, Denies odynophagia and Denies sore throat Cardiovascular: Cardiovascular: Denies chest pain and Denies radiating jaw, neck or arm pain Respiratory: Respiratory: Denies cough, Denies excessive phlegm production and Denies dyspnea Gastrointestinal: Gastrointestinal: Denies abdominal pain, Denies dyspepsia, Denies heartburn, Denies diarrhea, Denies nausea and Denies vomiting Genitourinary: Genitourinary: Denies dysuria and Denies flank pain Musculoskeletal: Musculoskeletal: Denies myalgias, Denies arthralgias and Denies joint swelling Integumentary/Breasts: Skin/Breast: Denies rash Neurologic: Denies abnormal gait, Denies vertigo, Denies dizziness, Denies Sensory deficit (Neuro), Reports tingling and Reports paresthesias Psychiatric: Psychiatric: Reports no additional psychiatric complaints and Reports as per HPI Endocrine: Endocrine: Denies cold intolerance, Denies fatigue, Denies flushing, Denies heat intolerance, Denies polyphagia, Denies polydipsia and Denies palpitations Hematologic/Lymphatic: Hematologic/Lymphatic: Reports no additional hematologic/lymphatic complaints and Reports as per HPI Allergic/Immunologic: Allergic/Immunologic: Reports no additional allergic/immunologic complaints and Reports as per HPI PMFSH Past Medical History Medical History Abnormal glucose tolerance in Gestational diabetes Family History Family History Other Diabetes mellitus Sibling Heart disease Asthma Social History Social History Smoking status: Never smoker Tobacc
[2022-09-30 01:14] LABS: Basophils Absolute Auto 0.1 K/mm3 (0.0-0.1); Basophils Percent Auto 0.6 % (0.2-1.2); Eosinophils Absolute Auto 0.3 K/mm3 (0-0.3); Eosinophils Percent Auto 3.8 % (0-4.4); Hematocrit 37.7 % (37.0-47.0); Hemoglobin 11.9 g/dL (12.0-15.0); Immature Granulocyte Absolute 0.01 K/mm3 (0.00-0.031); Immature Granulocyte Percent A 0.1 % (0-0.5); Lymphocytes Absolute Auto 2.87 K/mm3 (0.9-3.2); Lymphocytes Percent Auto 36.2 % (18.3-44.2); Mean Corpuscular HGB Conc 31.6 g/dl (32-36); Mean Corpuscular Volume 88.7 fl (80-100); Mean Platelet Volume 8.8 fl (7.4-10.4); Monocytes Absolute Auto 0.6 K/mm3 (0.1-0.6); Monocytes Percent Auto 7.4 % (2.6-8.5); Neutrophils Absolute Auto 4.1 K/mm3 (1.3-6.7); Neutrophils Percent Auto 51.9 % (45.5-73.1); Platelet Count Result 286 k/mm3 (150-375); Red Blood Count 4.25 M/mm3 (4.2-5.4); Red Cell Distribution Width 15.3 % (11.5-14.5); White Blood Count 7.9 K/mm3 (4.5-10.0)
--- NOTE | 2022-09-30 01:20 | PC.NURSE ---
This RN called OB 2nd floor to get a breast pump for pt.
[2022-09-30 01:23] LABS: Alanine Aminotransferase 26 U/L (6-35); Albumin Level 4.5 g/dL (3.5-5.1); Alkaline Phosphatase 124 U/L (38-126); Anion Gap 7 mmol/L (8-16); Aspartate Amino Transferase 32 U/L (14-36); Bilirubin,Total 0.7 mg/dL (0.2-1.3); Blood Urea Nitrogen 23 mg/dL (7-17); Calcium 9.3 mg/dL (8.4-10.2); Carbon Dioxide 25 mmol/L (22-30); Chloride 105 mmol/L (98-107); Estimated Glomerular Filt Rate > 60; Glucose 104 mg/dL (65-110); Magnesium 1.8 mg/dL (1.6-2.3); Potassium 3.8 mmol/L (3.4-5.0); Sodium 137 mmol/L (137-145)
--- NOTE | 2022-09-30 02:47 | ADMGEN ---
This patient, Carlita Wise, was admitted to [address] [place] [address] Room 330-01 at 0245. Patient/family oriented to hospital policies and general routines including ID bracelet, bed and alarms, visiting hours, pain management, procedures, bathroom and other care routines, personal items, smoking policy, room service/diet, and visiting hours. Information on how to activate the Rapid Response Team has been discussed. Patient/Family are encouraged to report perceived risks to care and to ask questions if they do not understand what they are told or what they should do.
[2022-09-30 02:58] VITALS: BP 116/78; PULSE 59; RESP 14; TEMP 36.3; O2SAT 100; BMI 36.0
[2022-09-30 03:04] VITALS: BMI 36.0
[2022-09-30 06:00] VITALS: BP 96/48; PULSE 72; RESP 14; TEMP 36.1; O2SAT 100
--- NOTE | 2022-09-30 09:51 | WPDNEURCNPN ---
Assessment and Plan Assessment and plan (1) Facial swelling: Code(s): R22.0 - Localized swelling, mass and lump, head Status: Acute (2) Facial droop: Code(s): R29.810 - Facial weakness Status: Acute (3) Facial paresthesia: Code(s): R20.2 - Paresthesia of skin Status: Acute Plan Ms. Wise is a 27 year old female with a history of gestational diabetes presenting due to concerns for left facial weakness. CT head findings likely artifactual since MRI brain was read as normal. 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 - Recommend Prednisone 60mg x 7 days - Close follow-up with PCP - OK to discharge patient Consult date: 09/30/22 Reason for consult: Facial weakness HPI: Carlita Wise is a 27 year old female with a history of gestational diabetes presenting due to new symptoms of facial weakness and facial paraesthesias. About four days ago, patient started having difficulty closing her left eye, and numbness and tingling on the left side of her face. She also noted swelling of the left eye lid. She initially presented to urgent care but was sent to [place] ED for further evaluation. In the ED, she was noted to have incomplete closure of the left eye, and slight asymmetry of smile on the left side as well. CT head was obtained which was ready as possible encephalomalacia in the left hippocampus. She had an MRI brain done already which was read as normal. Patient reports persistent left facial numbness and weakness, as well as LUE numbness. She also had dysguesia. Review of Systems Constitutional: Constitutional: Denies chills, Denies fever(s) and Denies weight loss Eyes: Eyes: Denies diplopia and Denies loss of vision Comments: tearing of left eye inability to close left eye ENT: Denies dizziness, Denies hearing loss and Denies tinnitus Comments: no hyperacusis Cardiovascular: Cardiovascular: Denies chest pain, Denies syncope and Denies dyspnea Respiratory: Respiratory: Denies cough, Denies dyspnea and Denies wheezing Gastrointestinal: Gastrointestinal: Denies abdominal pain, Denies change in bowel habits and Denies vomiting Genitourinary: Genitourinary: Denies urinary incontinence Musculoskeletal: Musculoskeletal: Denies arthralgias and Denies joint swelling Integumentary/Breasts: Skin/Breast: Denies new lesions and Denies rash Neurologic: Reports as per HPI, Denies dizziness, Denies syncope, Denies loss of vision and Reports numbness Psychiatric: Psychiatric: Denies anxiety and Denies depression Endocrine: Endocrine: Denies cold intolerance and Denies heat intolerance Hematologic/Lymphatic: Hematologic/Lymphatic: Denies easy bleeding and Denies easy bruising Allergic/Immunologic: Allergic/Immunologic: Denies no additional allergic/immunologic complaints and Denies wheezing PMFSH Past Medical History Medical History Abnormal glucose tolerance in Gestational diabetes Family History Family History Other Diabetes mellitus Sibling Heart disease Asthma Social History Social History Smoking status: Never smoker Tobacco type: e-cigarettes/vaping Second hand tobacco smoke exposure: No Alcohol intake: former Substance use: never Lack of Transportation: No Lack of Food: Never True Current Housing: I Have Housing Concerned About Future Housing: No Difficulty Paying Gas/Electric Bills: No Difficulty Paying for Meds: No Currently Unemployed: No Education: High School Diploma/GED Difficulty w/ Childcare or Family Care: No Living arrangements: other Additional living arrangements comments: and children Occupation/Education: unemployed Gender identity (if verbalized by the patient): Female Sexual Orientation (if Verbalized by the Patient): Straight or He
--- NOTE | 2022-09-30 10:04 | PM.IMPN ---
Progress Note: A&P Assessment and Plan (1) Facial droop: Code(s): R29.810 - Facial weakness Status: Acute Assessment and Plan: MRI and neurology consult pending (2) Facial paresthesia: Code(s): R20.2 - Paresthesia of skin Status: Acute Assessment and Plan: As above (3) Facial swelling: Code(s): R22.0 - Localized swelling, mass and lump, head Status: Acute Assessment and Plan: CT head and neck pending Plan DVT prophylaxis with SCDs GI prophylaxis not indicated Code status full code Subjective Date/time seen: 09/30/22 10:04 Interval history: 27-year-old female with history of gestational diabetes is 7 weeks and presenting with left-sided facial swelling. No overnight events noted. No chest pain or shortness of breath. No nausea, vomiting or diarrhea. No fevers or chills. Review of Systems Review of Systems: 12 point review of systems was assessed and was negative except as noted in the HPI Exam Narrative: General: No acute distress, alert and oriented per baseline HEENT: Atraumatic, normocephalic, mucous membranes moist CV: Regular rate and rhythm, S1, S2 Lungs: Clear to auscultation bilaterally, no rales or crackles noted, no wheezes, good air entry Abdomen: Soft, nontender, nondistended Extremities: Normal to inspection Skin: No rashes noted, no lesions or wounds seen Psych: Euthymic, normal affect Objective Data Vital Signs Vital Signs: Vital Signs - 24 hr 09/29/22 21:52 09/30/22 00:23 09/30/22 00:25 Temperature 97.6 F 98.1 F Pulse Rate 87 64 80 Respiratory Rate 14 15 Blood Pressure 116/77 112/72 Pulse Oximetry 100 98 Oxygen Delivery Room Air 09/30/22 02:58 09/30/22 03:19 09/30/22 06:00 Temperature 97.3 F L 97 F L Pulse Rate 59 L 72 Respiratory Rate 14 14 Blood Pressure 116/78 96/48 L Pulse Oximetry 100 100 Oxygen Delivery Room Air 09/30/22 08:00 Temperature Pulse Rate Respiratory Rate Blood Pressure Pulse Oximetry Oxygen Delivery Room Air Meds/Results Radiology Results: ITS Impressions Head CT 09/29/22 22:22 IMPRESSION: Subcentimeter hypodensity in the left hippocampal gyrus, may represent a small focus of subacute or chronic encephalomalacia versus artifact from asymmetric visualization of an inferior sulcus. Recommend comparison to outside studies if available. Consider MR of the brain with and without for further characterization. Otherwise unremarkable CT brain findings Soft Tissue Neck CT 09/30/22 06:12 IMPRESSION: 1. No etiology for the patient's symptoms. Brain MRI 09/30/22 09:01 IMPRESSION: 1. Normal brain. Labs Labs: Laboratory Results - last 24 hr 09/30/22 01:07 WBC 7.9 RBC 4.25 Hgb 11.9 L D Hct 37.7 MCV 88.7 MCH 28.0 MCHC 31.6 L RDW 15.3 H Plt Count 286 MPV 8.8 Immature Gran % (Auto) 0.1 Neut % (Auto) 51.9 Lymph % (Auto) 36.2 [place] % (Auto) 7.4 Eos % (Auto) 3.8 Baso % (Auto) 0.6 Lymph # (Auto) 2.87 [place] # (Auto) 0.6 Eos # (Auto) 0.3 Baso # (Auto) 0.1 Abs Immat Gran (auto) 0.01 Absolute Neuts (auto) 4.1 Absolute Nucleated RBC 0.0 Nucleated RBC % 0.0 Sodium 137 Potassium 3.8 Chloride 105 Carbon Dioxide 25 Anion Gap 7 L BUN 23 H Creatinine 0.50 L Estim Creat Clear Calc Not Reportable Estimated GFR > 60 Glucose 104 Calcium 9.3 Magnesium 1.8 Total Bilirubin 0.7 AST 32 ALT 26 Alkaline Phosphatase 124 Total Protein 8.0 Albumin 4.5
[2022-09-30 14:49] VITALS: BP 134/57; PULSE 89; RESP 16; TEMP 36.6; O2SAT 97
--- NOTE | 2022-09-30 15:02 | PM.DS ---
DS: Admitting Diagnosis Discharge Date 09/30/22 Admitting Diagnosis facial droop with paresthesias DS: Discharge Diagnosis Discharge Diagnosis (1) Facial droop: Code(s): R29.810 - Facial weakness Status: Acute Assessment and Plan: MRI and neurology consult pending (2) Facial paresthesia: Code(s): R20.2 - Paresthesia of skin Status: Acute Assessment and Plan: As above (3) Facial swelling: Code(s): R22.0 - Localized swelling, mass and lump, head Status: Acute Assessment and Plan: CT head and neck pending Plan DVT prophylaxis with SCDs GI prophylaxis not indicated Code status full code DS: Summary Hospital Course Hospital Course: 19-year-old female 7 weeks presenting with left facial weakness and paresthesias. 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 She was discharged on prednisone 60 mg for [address] head and MRI both negative for further etiology. Please see above and med rec for details. Time Spent with Patient Time attestation: Total time spent providing and/or coordinating discharge services: Exam Narrative: General: No acute distress, alert and oriented per baseline HEENT: Atraumatic, normocephalic, mucous membranes moist CV: Regular rate and rhythm, S1, S2 Lungs: Clear to auscultation bilaterally, no rales or crackles noted, no wheezes, good air entry Abdomen: Soft, nontender, nondistended Extremities: Normal to inspection Skin: No rashes noted, no lesions or wounds seen Psych: Euthymic, normal affect DS: Data Data Completed and Pending Labs on day of discharge: Labs from last 24 hours 09/30/22 01:07 WBC 7.9 RBC 4.25 Hgb 11.9 L D Hct 37.7 MCV 88.7 MCH 28.0 MCHC 31.6 L RDW 15.3 H Plt Count 286 MPV 8.8 Immature Gran % (Auto) 0.1 Neut % (Auto) 51.9 Lymph % (Auto) 36.2 [place] % (Auto) 7.4 Eos % (Auto) 3.8 Baso % (Auto) 0.6 Lymph # (Auto) 2.87 [place] # (Auto) 0.6 Eos # (Auto) 0.3 Baso # (Auto) 0.1 Abs Immat Gran (auto) 0.01 Absolute Neuts (auto) 4.1 Absolute Nucleated RBC 0.0 Nucleated RBC % 0.0 Sodium 137 Potassium 3.8 Chloride 105 Carbon Dioxide 25 Anion Gap 7 L BUN 23 H Creatinine 0.50 L Estim Creat Clear Calc Not Reportable Estimated GFR > 60 Glucose 104 Calcium 9.3 Magnesium 1.8 Total Bilirubin 0.7 AST 32 ALT 26 Alkaline Phosphatase 124 Total Protein 8.0 Albumin 4.5 Discharge Plan Discharge Attending physician on discharge: Brooke Sun Consulting providers: Bobby Bustamante; Terrie Duncan Discharging Clinician: Brooke Sun Patient Disposition: Home, Self-Care Activity: as tolerated Diet: as tolerated Patient Instructions: Antibiotic Form Stand Alone Forms: General Discharge Information Follow-up/Referrals: Bobby Bustamante MD [Physician] - Discharge Medications: New prednisone 50 mg tablet 50 mg PO DAILY 7 Days Qty: 7 0RF Date of admission: 09/30/22 01:08 Primary Care Provider: PHYSICIAN,PARBOILER Admitting Provider: Destinee Powers V. Attending physician on admission: Destinee Powers V. Condition: Stable
== END 2022-09-30 15:16 | disposition home or self-care (01) ==
LOC: ANHED 09-30 01:08 → ANH3MEDSUR 09-30 03:03
PROVIDERS: Admitting Provider Internal Medicine; Emergency Provider Emergency Medicine; Visit Provider Student in an Organized Health Care Education/Training Program
DX: R29.810 Facial weakness (principal); R20.2 Paresthesia of skin; R22.0 Localized swelling, mass and lump, head
CPT/HCPCS: 36415; 70450; 70490; 70551; 80053; 83735; 85025; 93005; 99285; G0378; G0379

== ENCOUNTER 2022-12-10 10:28 | Emergency (ER) | payer OTHER, SELFPAY ==
--- NOTE | 2022-12-10 10:34 | ED.URI ---
HPI - URI/Sore Throat General Chief Complaint: Upper Respiratory Infection Stated Complaint: Sore Throat/Left Ear Irritation Time Seen by Provider: 12/10/22 10:30 Source: patient Mode of arrival: ambulatory Limitations: no limitations History of Present Illness HPI Narrative: Patient is a 19-year-old female who presents with 2 days of sore throat and left ear irritation. Reports left ear feels like a hot poker is inside her ear. A denies any fever, chills, nausea, vomiting, diarrhea, congestion, cough. Did try [id number] ear drops with no relief. Is currently . Related Data Allergies Allergy/AdvReac Type Severity Reaction Status Date / Time Sulfa (Sulfonamide Allergy Mild Rash Verified 12/10/22 11:06 Antibiotics) Review of Systems Review of Systems: All systems reviewed & are unremarkable except as noted in HPI and below Constitutional: Constitutional: Denies body ache(s), Denies chills, Denies fever(s), Denies headache(s) and Denies malaise Eyes: Eyes: Denies blurry vision, Denies eye discharge and Denies irritation ENT: Reports otalgia, Denies headache(s), Denies nasal congestion, Denies nasal discharge and Reports sore throat Cardiovascular: Cardiovascular: Denies chest pain, Denies edema, Denies palpitations and Denies dyspnea on exertion Respiratory: Respiratory: Denies cough and Denies dyspnea on exertion Gastrointestinal: Gastrointestinal: Denies abdominal pain, Denies diarrhea, Denies nausea and Denies vomiting Musculoskeletal: Musculoskeletal: Denies back pain, Denies arthralgias and Denies muscle weakness Integumentary/Breasts: Skin/Breast: Denies pruritus and Denies rash Neurologic: Denies headache(s) Psychiatric: Psychiatric: Reports no additional psychiatric complaints Endocrine: Endocrine: Denies palpitations PMFSH Past Medical History Medical History Abnormal glucose tolerance in Gestational diabetes Family History Family History Other Diabetes mellitus Sibling Heart disease Asthma Social History Social History Smoking status: Never smoker Tobacco type: e-cigarettes/vaping Second hand tobacco smoke exposure: No Alcohol intake: former Substance use: never Lack of Transportation: No Lack of Food: Never True Current Housing: I Have Housing Concerned About Future Housing: No Difficulty Paying Gas/Electric Bills: No Difficulty Paying for Meds: No Currently Unemployed: No Education: High School Diploma/GED Difficulty w/ Childcare or Family Care: No Living arrangements: other Additional living arrangements comments: and children Occupation/Education: unemployed Gender identity (if verbalized by the patient): Female Sexual Orientation (if Verbalized by the Patient): Straight or Heterosexual Spiritual care concerns: No Comments At time of signature, agree with nursing past medical, surgical, social and family history. There is no relevant family history pertinent to the presenting complaint? Exam Const: General: cooperative, healthy appearing, no acute distress and well nourished Nutritional Appearance: well nourished Orientation/consciousness: patient oriented x3 Limitations: no limitations HENMT: Head: normal to inspection, normocephalic and atraumatic Ears: hearing grossly normal bilaterally, TM normal on the right, EAC's normal, no periauricular adenopathy and TM abnormal bulging on the left and erythematous on the left Face/Nose/Sinus: Normal external nose present, Normal nares present, Normal nasal mucous membranes and turbinates present, No nasal discharge present, normal facial exam and sinuses nontender Face and sinus: normal facial exam and sinuses nontender Mouth: Yes Normal oral and palatal mucosa present, Yes lip normal, Yes tongu
[2022-12-10 10:35] VITALS: BP 116/75; PULSE 102; RESP 16; TEMP 37.8; O2SAT 99
== END 2022-12-10 11:30 | disposition home or self-care (01) ==
PROVIDERS: Emergency Provider Nurse Practitioner Family
DX: H66.002 Acute suppurative otitis media without spontaneous rupture of ear drum, left ear (principal)
CPT/HCPCS: 87081; 87880; 99213; G0463

== ENCOUNTER 2024-07-18 19:03 | Emergency (ER) | payer SELFPAY ==
[2024-07-18 19:17] VITALS: BP 121/79; PULSE 91; RESP 20; TEMP 36.7; O2SAT 98
--- NOTE | 2024-07-18 19:20 | ED.EXTPRO ---
HPI - Extremity Problem General Chief complaint: Wound/Laceration Stated complaint: Left Foot Toe Pain Time Seen by Provider: 07/18/24 19:20 Source: patient Mode of arrival: ambulatory Limitations: no limitations History of Present Illness HPI Narrative: Carlita is a 29-year-old female patient presenting to the clinic today with complaints of possible ingrown infected toenail. She reports symptoms have been going on for the last 4 days. No fevers, chills, body aches. Is noticing drainage coming from the left lateral toe. Has applied some antibiotic ointment but is not improving Related Data Allergies Allergy/AdvReac Type Severity Reaction Status Date / Time Sulfa (Sulfonamide Allergy Mild Rash Verified 07/18/24 19:06 Antibiotics) Review of Systems Review of Systems: Pertinent positives per HPI. Patient denies any fever, chills, rash, headache, visual changes, dizziness, cough, runny nose, sore throat, shortness of breath, chest pain, palpitations, nausea, vomiting, diarrhea, constipation, abdominal pain, or any urinary issues. [facility] Past Medical History Medical History Gestational diabetes Abnormal glucose tolerance in Family History Family History Other Diabetes mellitus Sibling Heart disease Asthma Social History Social History Smoking status: Never smoker Tobacco type: e-cigarettes/vaping Second hand tobacco smoke exposure: No Alcohol intake: former Substance use: never Lack of Transportation: No Lack of Food: Never True Current Housing: I Have Housing Concerned About Future Housing: No Difficulty Paying Gas/Electric Bills: No Difficulty Paying for Meds: No Currently Unemployed: No Education: High School Diploma/GED Difficulty w/ Childcare or Family Care: No Living arrangements: other Additional living arrangements comments: and children Occupation/Education: unemployed Gender identity (if verbalized by the patient): Female Sexual Orientation (if Verbalized by the Patient): Straight or Heterosexual Spiritual care concerns: No Comments At the time of my signature, I reviewed and agree with the nursing past medical, surgical, social, and family history. There is no relevant family history pertinent to the patient complaint. Exam Narrative: General: Well-developed, well nourished, in no apparent distress Head: Normocephalic, atraumatic. Cardio: Regular rate and rhythm, s1 and s2 normal, no murmur appreciated. Resp: Clear to auscultation bilaterally, no rhonchi, rales, wheezing or rubs. Musculoskeletal: No deformity, tender to palpation over the lateral left great toe with localized redness and swelling, yellow discharge coming from the area, grossly normal range of motion, muscle strength strong and equal, peripheral pulse strong, no edema, no cyanosis, normal gait and station Course Course Emergency Course: Portions of this record may have been created with voice recognition software. Level of Care: Express Care Visit Vital Signs Vital signs: Vital Signs Temperature 36.7 C 07/18/24 19:17 Pulse Rate 91 07/18/24 19:17 Respiratory Rate 20 07/18/24 19:17 Blood Pressure 121/79 07/18/24 19:17 Pulse Oximetry 98 07/18/24 19:17 Oxygen Delivery Room Air 07/18/24 19:17 Temperature 36.7 C 07/18/24 19:17 Pulse Rate 91 07/18/24 19:17 Respiratory Rate 20 07/18/24 19:17 Blood Pressure 121/79 07/18/24 19:17 Pulse Oximetry 98 07/18/24 19:17 Oxygen Delivery Room Air 07/18/24 19:17 Vital signs reviewed MDM - Extremity (Nontraumatic) MDM Narrative Medical decision making narrative: At the time of visit patient is resting comfortably on the exam table. Patient appears to be nontoxic. Plan: I suspect patient has an infected ingrown toenail. Prescription for cephalexin was sent to the pharmacy. Recommend follow-up with printed circuit board reworker next week. Supportive measures were discussed with the patient and they voiced understanding discharge instructions and agrees to treatment plan. Return precautions reviewed Differential Diagnosis Differential diagnosis: Likely gout, cellulitis and other (Infected ingrown toenail) Discharge Plan Discharge Clinical Impression: Ingrowing toenail with infection Patient Disposition: Home Condition: Stable Instructions: Antibiotic Form, Ingrown Nail (ED) Additional Instructions: Take cephalexin as prescribed May take Tylenol/Motrin as needed for pain May do warm Epsom salt soaks 4 times daily Wash with soap and water daily May apply triple antibiotic ointment to the affected area twice daily Follow-up with printed circuit board reworker next week Patient Language: Serbian Prescriptions: New cephalexin 500 mg capsule 500 mg PO Q8H 7 Days Qty: 21 0RF Follow-up/Referrals: PHYSICIAN,NAPHTHALENE STILL OPERATOR [Primary Care Provider] - Time of Disposition: 19:22 Quality NIHSS Nursing Documentation ED NIHSS nursing documentation: reviewed/agree
== END 2024-07-18 19:28 | disposition home or self-care (01) ==
PROVIDERS: Emergency Provider Nurse Practitioner Family
DX: L60.0 Ingrowing nail (principal)
CPT/HCPCS: 99213; G0463

== ENCOUNTER 2024-08-09 16:57 | Emergency (ER) | payer SELFPAY ==
--- NOTE | ~2024-08-09 | US_ITS ---
EXAM: PELVIC ULTRASOUND HISTORY: vaginal bleeding and cramping during . Qualitative serum hCG is negative. Quantitative beta hCG is pending COMPARISON: None. FINDINGS: UTERUS: 8.7 x 5.2 x 6.6 cm. The uterus is anteverted and anteflexed. The endometrial complex measures 6.4 mm. RIGHT OVARY: The right ovary is unremarkable in echogenicity and size measuring 3.4 x 1.7 x 2.7 cm. Dopplerable flow is identified. LEFT OVARY: The left ovary is unremarkable in echogenicity and size measuring 4.2 x 2.1 x 2.2 cm Dopplerable flow is identified. No free fluid is identified within the pelvis. IMPRESSION: Unremarkable sonographic evaluation of the pelvis, as detailed above. No intrauterine gestation is appreciated. Please correlate these findings with the quantitative beta hCG, pending at the time of this dictation . Reviewed, dictated and finalized at location A. IMPRESSION: Unremarkable sonographic evaluation of the pelvis, as detailed above. No intrauterine gestation is appreciated. Please correlate these findings with the quantitative beta hCG, pending at the time of this dictation.
[2024-08-09 17:06] VITALS: BP 138/77; PULSE 89; RESP 18; TEMP 36.7; O2SAT 99
--- NOTE | 2024-08-09 18:09 | ED_ITS ---
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 Time Seen by Provider: 08/09/24 19:28 Focused HPI: 29 y/o F who is believes she is 5 weeks presents to the ED for vaginal bleeding. Pt is reporting abdominal cramping and vaginal bleeding that started today. States it feels like her typical period cramps with intermittent sharp pains. Pt states she has not required a pad or tampon. She is passing clots the size of dimes. She was told [email or web address] in [place] on 08/04 and had a positive test. She states on 08/03 she had 3 positive at home tests. Pt is . LMP 06/27/24. Denies fever, chills, dysuria. She is endorsing urinary frequency. Denies vaginal discharge and concern for STDs. GENERAL: Well-appearing, well-nourished, and in no acute distress. HEAD: Normocephalic, atraumatic. CHEST: Clear to auscultation. ?No respiratory distress. ABD: Tenderness in the suprapubic region on palpation. No rebound or rigidity. HEART: Regular rate and rhythm.? NEURO: ?Alert and oriented x3. Patient screened in triage and initial orders placed.? ?Additional care and disposition to be based upon?diagnostic testing and treatment. Related Data Allergies Allergy/AdvReac Type Severity Reaction Status Date / Time Sulfa (Sulfonamide Allergy Mild Rash Verified 08/09/24 18:33 Antibiotics) [facility] Past Medical History Medical History Gestational diabetes Abnormal glucose tolerance in Family History Family History Other Diabetes mellitus Sibling Heart disease Asthma Social History Social History Smoking status: Never smoker Tobacco type: e-cigarettes/vaping Second hand tobacco smoke exposure: No Alcohol intake: former Substance use: never Lack of Transportation: No Lack of Food: Never True Current Housing: I Have Housing Concerned About Future Housing: No Difficulty Paying Gas/Electric Bills: No Difficulty Paying for Meds: No Currently Unemployed: No Education: High School Diploma/GED Difficulty w/ Childcare or Family Care: No Living arrangements: other Additional living arrangements comments: and children Occupation/Education: unemployed Gender identity (if verbalized by the patient): Female Sexual Orientation (if Verbalized by the Patient): Straight or Heterosexual Spiritual care concerns: No Course Vital Signs Vital signs: Vital Signs Temperature 98.0 F 08/09/24 17:06 Pulse Rate 89 08/09/24 17:06 Respiratory Rate 18 08/09/24 17:06 Blood Pressure 138/77 08/09/24 17:06 Pulse Oximetry 99 08/09/24 17:06 Temperature 98.0 F 08/09/24 17:06 Pulse Rate 84 08/09/24 21:00 Respiratory Rate 16 08/09/24 21:00 Blood Pressure 131/80 08/09/24 21:00 Pulse Oximetry 100 08/09/24 21:00 MDM - Female Genitourinary Lab Data 08/09/24 18:29 08/09/24 18:29 Labs: Lab Results 08/09/24 08/09/24 08/09/24 Range/Units 18:21 18:24 18:28 WBC (4.5-10.0) K/mm3 RBC (4.2-5.4) M/mm3 Hgb (12.0-15.0) g/dL Hct (37.0-47.0) % MCV (80-100) fl MCH (26-34) pg MCHC (32-36) g/dl RDW (11.5-14.5) % Plt Count (150-375) k/mm3 MPV (7.4-10.4) fl Immature Gran % (Auto) (0-0.5) % Neut % (Auto) (45.5-73.1) % Lymph % (Auto) (18.3-44.2) % [place] % (Auto) (2.6-8.5) % Eos % (Auto) (0-4.4) % Baso % (Auto) (0.2-1.2) % Lymph # (Auto) (0.9-3.2) K/mm3 [place] # (Auto) (0.1-0.6) K/mm3 Eos # (Auto) (0-0.3) K/mm3 Baso # (Auto) (0.0-0.1) K/mm3 Abs Immat Gran (auto) (0.00-0.031) K/mm3 Absolute Neuts (auto) (1.3-6.7) K/mm3 Absolute Nucleated RBC (0.0-0.012) K/mm3 Nucleated RBC % (0.0-0.2) % PT (11.1-14.7) Seconds INR APTT (22.3-36.8) Seconds Sodium (137-145) mmol/L Potassium (3.4-5.0) mmol/L Chloride (98-107) mmol/L Carbon Dioxide (22-30) mmol/L Anion Gap (4-12) mmol/L BUN (7-17) mg/dL Creatinine (0.7-1.0) mg/dL Estim Creat Clear Calc ml/min Estimated GFR (59 - ) Glucose (65-110) mg/dL Calcium (8.4-10.2) mg/dL Total Bilirubin (0.2-1.3) mg/dL AST (14-36) U/L ALT (6-35) U/L Alkaline Phosphatase (38-126) U/L Total Protein (6.3-8.2) g/dL Albumin (3.5-5.1) g/dL Serum HCG, Qual Beta HCG, Quant < 2.39 mIU/ML Urine Color Dark luther (Yellow) Urine Appearance Turbid H (Clear) Urine pH 6.0 (5.0-9.0) Ur Specific [place] 1.026 (1.001-1.035) Urine Protein 1+ H (Negative) mg/dL Urine Glucose (UA) Negative (Negative) mg/dL Urine Ketones Negative (Negative) mg/dL Ur Blood (Man) 3+ H (Negative) Urine Nitrate Negative (Negative) Urine Bilirubin Negative (Negative) Urine Urobilinogen 1.0 (<2.0) mg/dL Leukocyte Esterase Rfl 1+ H (Negative) RADHA/UL Urine RBC >100 H (0-2) /hpf Urine WBC 51-100 H (0-3) /hpf Ur Squamous Epith Cells Moderate (Few) /hpf Urine Bacteria Rare /hpf Urine Casts 0-2 POC Urine HCG, Qual Negative (Negative) 06/24/25 Range/Units 18:29 WBC 12.3 H (4.5-10.0) K/mm3 RBC 4.27 (4.2-5.4) M/mm3 Hgb 12.3 (12.0-15.0) g/dL Hct 37.8 (37.0-47.0) % MCV 88.5 (80-100) fl MCH 28.8 (26-34) pg MCHC 32.5 (32-36) g/dl RDW 14.2 (11.5-14.5) % Plt Count 289 (150-375) k/mm3 MPV 8.7 (7.4-10.4) fl Immature Gran % (Auto) 0.3 (0-0.5) % Neut % (Auto) 64.7 (45.5-73.1) % Lymph % (Auto) 28.6 (18.3-44.2) % [place] % (Auto) 4.5 (2.6-8.5) % Eos % (Auto) 1.6 (0-4.4) % Baso % (Auto) 0.3 (0.2-1.2) % Lymph # (Auto) 3.52 H (0.9-3.2) K/mm3 [place] # (Auto) 0.6 (0.1-0.6) K/mm3 Eos # (Auto) 0.2 (0-0.3) K/mm3 Baso # (Auto) 0.0 (0.0-0.1) K/mm3 Abs Immat Gran (auto) 0.04 H (0.00-0.031) K/mm3 Absolute Neuts (auto) 8.0 H (1.3-6.7) K/mm3 Absolute Nucleated RBC 0.000 (0.0-0.012) K/mm3 Nucleated RBC % 0.0 (0.0-0.2) % PT 13.0 (11.1-14.7) Seconds INR 1.0 APTT 25.5 (22.3-36.8) Seconds Sodium 139 (137-145) mmol/L Potassium 3.8 (3.4-5.0) mmol/L Chloride 107 (98-107) mmol/L Carbon Dioxide 20 L (22-30) mmol/L Anion Gap 12 (4-12) mmol/L BUN 12 D (7-17) mg/dL Creatinine 0.43 L (0.7-1.0) mg/dL Estim Creat Clear Calc 151 ml/min Estimated GFR > 60 (59 - ) Glucose 96 (65-110) mg/dL Calcium 8.9 (8.4-10.2) mg/dL Total Bilirubin 0.6 (0.2-1.3) mg/dL AST 27 (14-36) U/L ALT 15 (6-35) U/L Alkaline Phosphatase 81 (38-126) U/L Total Protein 8.5 H (6.3-8.2) g/dL Albumin 4.5 (3.5-5.1) g/dL Serum HCG, Qual Negative Beta HCG, Quant mIU/ML Urine Color (Yellow) Urine Appearance (Clear) Urine pH (5.0-9.0) Ur Specific [place] (1.001-1.035) Urine Protein (Negative) mg/dL Urine Glucose (UA) (Negative) mg/dL Urine Ketones (Negative) mg/dL Ur Blood (Man) (Negative) Urine Nitrate (Negative) Urine Bilirubin (Negative) Urine Urobilinogen (<2.0) mg/dL Leukocyte Esterase Rfl (Negative) RADHA/UL Urine RBC (0-2) /hpf Urine WBC (0-3) /hpf Ur Squamous Epith Cells (Few) /hpf Urine Bacteria /hpf Urine Casts POC Urine HCG, Qual (Negative) Discharge Plan Discharge Clinical Impression: Vaginal bleeding, Urinary tract infection, Chemical Patient Disposition: Home Condition: Stable Instructions: Antibiotic Form, Urinary Tract Infection in Women (ED) Additional Instructions: Please return to the ER with any worsening symptoms. Follow-up with OBGYN as soon as possible. Remember to stay hydrated upon time of discharge. Please complete your full dose of antibiotics. Patient Language: Syrian Prescriptions: New nitrofurantoin monohyd/m-cryst [Macrobid] 100 mg capsule 100 mg PO Q12H 5 Days Qty: 10 0RF Rx Instructions: must administer with a meal/food No Action cephalexin 500 mg capsule 500 mg PO Q8H 7 Days Qty: 21 0RF Follow-up/Referrals: PHYSICIAN,LABEL PRESS OPERATOR [Primary Care Provider] - Time of Disposition: 21:30
[2024-08-09 18:23] LABS: BEDSIDEPREGUCG Negative (Negative)
[2024-08-09] MEDS: ACETAMINOPHEN 500 MG TABLET 1000 MG PO (18:34)
[2024-08-09 18:36] LABS: Basophils Percent Auto 0.3 % (0.2-1.2); Eosinophils Absolute Auto 0.2 K/mm3 (0-0.3); Eosinophils Percent Auto 1.6 % (0-4.4); Hematocrit 37.8 % (37.0-47.0); Hemoglobin 12.3 g/dL (12.0-15.0); Immature Granulocyte Absolute 0.04 K/mm3 (0.00-0.031); Immature Granulocyte Percent A 0.3 % (0-0.5); Lymphocytes Absolute Auto 3.52 K/mm3 (0.9-3.2); Lymphocytes Percent Auto 28.6 % (18.3-44.2); Mean Corpuscular HGB Conc 32.5 g/dl (32-36); Mean Corpuscular Hemoglobin 28.8 pg (26-34); Mean Corpuscular Volume 88.5 fl (80-100); Mean Platelet Volume 8.7 fl (7.4-10.4); Monocytes Absolute Auto 0.6 K/mm3 (0.1-0.6); Monocytes Percent Auto 4.5 % (2.6-8.5); Neutrophils Percent Auto 64.7 % (45.5-73.1); Platelet Count Result 289 k/mm3 (150-375); Red Blood Count 4.27 M/mm3 (4.2-5.4); Red Cell Distribution Width 14.2 % (11.5-14.5); White Blood Count 12.3 K/mm3 (4.5-10.0)
[2024-08-09 18:48] LABS: Alanine Aminotransferase 15 U/L (6-35); Albumin Level 4.5 g/dL (3.5-5.1); Alkaline Phosphatase 81 U/L (38-126); Anion Gap 12 mmol/L (4-12); Aspartate Amino Transferase 27 U/L (14-36); Bilirubin,Total 0.6 mg/dL (0.2-1.3); Blood Urea Nitrogen 12 mg/dL (7-17); Calcium 8.9 mg/dL (8.4-10.2); Carbon Dioxide 20 mmol/L (22-30); Chloride 107 mmol/L (98-107); Estimated CRCL calculation 151 ml/min; Estimated Glomerular Filt Rate > 60; Glucose 96 mg/dL (65-110); Partial Thromboplastin Time 25.5 Seconds (22.3-36.8); Potassium 3.8 mmol/L (3.4-5.0); Sodium 139 mmol/L (137-145); Total Protein 8.5 g/dL (6.3-8.2)
[2024-08-09 18:52] LABS: SPREG INTERNAL CONTROL Positive; Serum Qual hCG Negative
[2024-08-09 19:27] LABS: Bacteria Urine Rare /hpf; Non Pathogenic Casts 0-2; RBC Urine >100 /hpf (0-2); Squamous Epithelial Cell Urine Moderate /hpf (Few); WBC Urine 51-100 /hpf (0-3)
[2024-08-09 19:30] LABS: Add Urine Microscopic? YES; Appearance Urine Turbid (Clear); Bilirubin Urine Negative (Negative); Blood Urine 3+ (Negative); Glucose Urine UA Negative (Negative); Ketones Urine Negative (Negative); Leukocyte Esterase Ur 1+ LEU/UL (Negative); Nitrate Urine Negative (Negative); Protein Urine 1+ mg/dL (Negative); Specific Grav Ur 1.026 (1.001-1.035)
[2024-08-09 19:31] LABS: Color Urine Dark Amber (Yellow)
--- NOTE | 2024-08-09 20:07 | PC.NURSE ---
Called Giovany in the lab in regards to beta HCG. Lab is to be added on.
[2024-08-09 20:31] LABS: Beta HCG Quantitative < 2.39 mIU/ML
[2024-08-09 21:00] VITALS: BP 131/80; PULSE 84; RESP 16; O2SAT 100
--- NOTE | 2024-08-09 21:21 | ED_ITS ---
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 Time Seen by Provider: 08/09/24 19:28 History of Present Illness HPI Narrative: Patient is a 29-year-old female presents to the ER with vaginal bleeding and cramping. She reports she took a test at home and it was positive. Patient reports she went to urgent care and they did not do an ultrasound but she had a positive test at their facility also. This morning patient with vaginal bleeding and cramping. She has not taken anything for pain or discomfort at home. Patient reports her last menstrual period was June 27, 2024. She reports she has 4 living children and has not had any miscarriages in the past. She denies any pertinent medical history relevant to this ER visit. Related Data Allergies Allergy/AdvReac Type Severity Reaction Status Date / Time Sulfa (Sulfonamide Allergy Mild Rash Verified 08/09/24 18:33 Antibiotics) Review of Systems 2 Review of Systems: All systems reviewed & are unremarkable except as noted in HPI and below PMFSH Past Medical History Medical History Gestational diabetes Abnormal glucose tolerance in Family History Family History Other Diabetes mellitus Sibling Heart disease Asthma Social History Social History Smoking status: Never smoker Tobacco type: e-cigarettes/vaping Second hand tobacco smoke exposure: No Alcohol intake: former Substance use: never Lack of Transportation: No Lack of Food: Never True Current Housing: I Have Housing Concerned About Future Housing: No Difficulty Paying Gas/Electric Bills: No Difficulty Paying for Meds: No Currently Unemployed: No Education: High School Diploma/GED Difficulty w/ Childcare or Family Care: No Living arrangements: other Additional living arrangements comments: and children Occupation/Education: unemployed Gender identity (if verbalized by the patient): Female Sexual Orientation (if Verbalized by the Patient): Straight or Heterosexual Spiritual care concerns: No Exam 2 Narrative: GENERAL: Well appearing, well-nourished, non-toxic, in no acute distress. HEAD: Normocephalic, atraumatic. NECK: Supple. No adenopathy, no masses. RESPIRATORY: Airway patent, respirations nonlabored. Clear to auscultation bilaterally, no rales, rhonchi, wheezing. CARDIOVASCULAR: Regular rate and rhythm without murmurs, rubs, or gallops. Peripheral pulses 2+ and equal bilaterally. ABDOMINAL: Soft, nontender, nondistended, no hepatosplenomegaly. Normoactive BS. MUSCULOSKELETAL: Moves all extremities. Strength/ROM intact without gross deformities. SKIN: Warm, dry, normal color. No rashes. NEURO: A&O X3. Speech clear. Cranial nerves II-XII intact. No ataxic movements. PSYCHIATRIC: Appropriate mood and affect. Normal interaction. Course Vital Signs Vital signs: Vital Signs Temperature 36.7 C 08/09/24 17:06 Pulse Rate 89 08/09/24 17:06 Respiratory Rate 18 08/09/24 17:06 Blood Pressure 138/77 08/09/24 17:06 Pulse Oximetry 99 08/09/24 17:06 Temperature 36.7 C 08/09/24 17:06 Pulse Rate 89 08/09/24 17:06 Respiratory Rate 18 08/09/24 17:06 Blood Pressure 138/77 08/09/24 17:06 Pulse Oximetry 99 08/09/24 17:06 MDM - OB/Uterine Contractions MDM Narrative Medical decision making narrative: Patient is a 29-year-old female presents to the ER with vaginal bleeding and cramping. She reports she took a test at home and it was positive. Patient reports she went to urgent care and they did not do an ultrasound but she had a positive test at their facility also. This morning patient with vaginal bleeding and cramping. She has not taken anything for pain or discomfort at home. Patient reports her last menstrual period was June 27, 2024. She reports she has 4 living children and has not had any miscarriages in the past. She denies any pertinent medical history relevant to this ER visit. Labs Ordered: CBC, CMP, UA, beta hCG, PTT, INR Imaging Ordered: Pelvic ultrasound Medications Ordered: Keflex PO Results: Pt's pelvic US indicates UTERUS: 8.7 x 5.2 x 6.6 cm. The uterus is anteverted and anteflexed. The endometrial complex measures 6.4 mm. RIGHT OVARY: The right ovary is unremarkable in echogenicity and size measuring 3.4 x 1.7 x 2.7 cm. Dopplerable flow is identified. LEFT OVARY: The left ovary is unremarkable in echogenicity and size measuring 4.2 x 2.1 x 2.2 cm Dopplerable flow is identified. No free fluid is identified within the pelvis. IMPRESSION: Unremarkable sonographic evaluation of the pelvis. No intrauterine gestation is appreciated. Patient's urinalysis indicates a urinary tract infection. Diagnosis: Urinary tract infection Consults: OBGYN (outpatient) Patient Education/Shared MDM: Results of lab work and imaging shared with patient. She has a urinary tract infection will be given her 1st dose of antibiotic here in the ER. Patient strongly advised to maintain hydration status upon discharge and follow-up with an OBGYN as soon as possible. She will be discharged home with a prescription for Macrobid. Strict return precautions provided. Patient verbalized understanding and is in agreement with plan. Vital signs stable at time of discharge. All questions answered. Differential Diagnosis Differential diagnosis: Likely other (Threatened , urinary tract infection, intrauterine , vaginal bleeding) Lab Data Attestation: I reviewed the patient's lab results. 08/09/24 18:29 08/09/24 18:29 Labs: Lab Results 08/09/24 08/09/24 08/09/24 Range/Units 18:21 18:24 18:28 WBC (4.5-10.0) K/mm3 RBC (4.2-5.4) M/mm3 Hgb (12.0-15.0) g/dL Hct (37.0-47.0) % MCV (80-100) fl MCH (26-34) pg MCHC (32-36) g/dl RDW (11.5-14.5) % Plt Count (150-375) k/mm3 MPV (7.4-10.4) fl Immature Gran % (Auto) (0-0.5) % Neut % (Auto) (45.5-73.1) % Lymph % (Auto) (18.3-44.2) % [place] % (Auto) (2.6-8.5) % Eos % (Auto) (0-4.4) % Baso % (Auto) (0.2-1.2) % Lymph # (Auto) (0.9-3.2) K/mm3 [place] # (Auto) (0.1-0.6) K/mm3 Eos # (Auto) (0-0.3) K/mm3 Baso # (Auto) (0.0-0.1) K/mm3 Abs Immat Gran (auto) (0.00-0.031) K/mm3 Absolute Neuts (auto) (1.3-6.7) K/mm3 Absolute Nucleated RBC (0.0-0.012) K/mm3 Nucleated RBC % (0.0-0.2) % PT (11.1-14.7) Seconds INR APTT (22.3-36.8) Seconds Sodium (137-145) mmol/L Potassium (3.4-5.0) mmol/L Chloride (98-107) mmol/L Carbon Dioxide (22-30) mmol/L Anion Gap (4-12) mmol/L BUN (7-17) mg/dL Creatinine (0.7-1.0) mg/dL Estim Creat Clear Calc ml/min Estimated GFR (59 - ) Glucose (65-110) mg/dL Calcium (8.4-10.2) mg/dL Total Bilirubin (0.2-1.3) mg/dL AST (14-36) U/L ALT (6-35) U/L Alkaline Phosphatase (38-126) U/L Total Protein (6.3-8.2) g/dL Albumin (3.5-5.1) g/dL Serum HCG, Qual Beta HCG, Quant < 2.39 mIU/ML Urine Color Dark luther (Yellow) Urine Appearance Turbid H (Clear) Urine pH 6.0 (5.0-9.0) Ur Specific [place] 1.026 (1.001-1.035) Urine Protein 1+ H (Negative) mg/dL Urine Glucose (UA) Negative (Negative) mg/dL Urine Ketones Negative (Negative) mg/dL Ur Blood (Man) 3+ H (Negative) Urine Nitrate Negative (Negative) Urine Bilirubin Negative (Negative) Urine Urobilinogen 1.0 (<2.0) mg/dL Leukocyte Esterase Rfl 1+ H (Negative) RADHA/UL Urine RBC >100 H (0-2) /hpf Urine WBC 51-100 H (0-3) /hpf Ur Squamous Epith Cells Moderate (Few) /hpf Urine Bacteria Rare /hpf Urine Casts 0-2 POC Urine HCG, Qual Negative (Negative) 08/09/24 Range/Units 18:29 WBC 12.3 H (4.5-10.0) K/mm3 RBC 4.27 (4.2-5.4) M/mm3 Hgb 12.3 (12.0-15.0) g/dL Hct 37.8 (37.0-47.0) % MCV 88.5 (80-100) fl MCH 28.8 (26-34) pg MCHC 32.5 (32-36) g/dl RDW 14.2 (11.5-14.5) % Plt Count 289 (150-375) k/mm3 MPV 8.7 (7.4-10.4) fl Immature Gran % (Auto) 0.3 (0-0.5) % Neut % (Auto) 64.7 (45.5-73.1) % Lymph % (Auto) 28.6 (18.3-44.2) % [place] % (Auto) 4.5 (2.6-8.5) % Eos % (Auto) 1.6 (0-4.4) % Baso % (Auto) 0.3 (0.2-1.2) % Lymph # (Auto) 3.52 H (0.9-3.2) K/mm3 [place] # (Auto) 0.6 (0.1-0.6) K/mm3 Eos # (Auto) 0.2 (0-0.3) K/mm3 Baso # (Auto) 0.0 (0.0-0.1) K/mm3 Abs Immat Gran (auto) 0.04 H (0.00-0.031) K/mm3 Absolute Neuts (auto) 8.0 H (1.3-6.7) K/mm3 Absolute Nucleated RBC 0.000 (0.0-0.012) K/mm3 Nucleated RBC % 0.0 (0.0-0.2) % PT 13.0 (11.1-14.7) Seconds INR 1.0 APTT 25.5 (22.3-36.8) Seconds Sodium 139 (137-145) mmol/L Potassium 3.8 (3.4-5.0) mmol/L Chloride 107 (98-107) mmol/L Carbon Dioxide 20 L (22-30) mmol/L Anion Gap 12 (4-12) mmol/L BUN 12 D (7-17) mg/dL Creatinine 0.43 L (0.7-1.0) mg/dL Estim Creat Clear Calc 151 ml/min Estimated GFR > 60 (59 - ) Glucose 96 (65-110) mg/dL Calcium 8.9 (8.4-10.2) mg/dL Total Bilirubin 0.6 (0.2-1.3) mg/dL AST 27 (14-36) U/L ALT 15 (6-35) U/L Alkaline Phosphatase 81 (38-126) U/L Total Protein 8.5 H (6.3-8.2) g/dL Albumin 4.5 (3.5-5.1) g/dL Serum HCG, Qual Negative Beta HCG, Quant mIU/ML Urine Color (Yellow) Urine Appearance (Clear) Urine pH (5.0-9.0) Ur Specific [place] (1.001-1.035) Urine Protein (Negative) mg/dL Urine Glucose (UA) (Negative) mg/dL Urine Ketones (Negative) mg/dL Ur Blood (Man) (Negative) Urine Nitrate (Negative) Urine Bilirubin (Negative) Urine Urobilinogen (<2.0) mg/dL Leukocyte Esterase Rfl (Negative) RADHA/UL Urine RBC (0-2) /hpf Urine WBC (0-3) /hpf Ur Squamous Epith Cells (Few) /hpf Urine Bacteria /hpf Urine Casts POC Urine HCG, Qual (Negative) Imaging Data Attestation: I personally reviewed and interpreted this imaging study as follows: Radiologist's impression: Impressions Ultrasound 08/09/24 20:12 IMPRESSION: Unremarkable sonographic evaluation of the pelvis, as detailed above. No intrauterine gestation is appreciated. Please correlate these findings with the quantitative beta hCG, pending at the time of this dictation. Discharge Plan Discharge Clinical Impression: Vaginal bleeding, Urinary tract infection, Chemical Patient Disposition: Home Condition: Stable Instructions: Antibiotic Form, Urinary Tract Infection in Women (ED) Additional Instructions: Please return to the ER with any worsening symptoms. Follow-up with OBGYN as soon as possible. Remember to stay hydrated upon time of discharge. Please complete your full dose of antibiotics. Patient Language: Citizen Of [place] Prescriptions: New nitrofurantoin monohyd/m-cryst [Macrobid] 100 mg capsule 100 mg PO Q12H 5 Days Qty: 10 0RF Rx Instructions: must administer with a meal/food No Action cephalexin 500 mg capsule 500 mg PO Q8H 7 Days Qty: 21 0RF Follow-up/Referrals: PHYSICIAN,[facility] [employer] [Primary Care Provider] -
[2024-08-09] MEDS: NITROFURANTOIN MONOHYD MACROCR 100 MG CAP PO (21:36)
== END 2024-08-09 21:40 | disposition home or self-care (01) ==
PROVIDERS: Physician Assistant; Emergency Provider Registered Nurse
DX: O02.81 Inappropriate change in quantitative human chorionic gonadotropin (hCG) in early pregnancy (principal); N39.0 Urinary tract infection, site not specified
CPT/HCPCS: 36415; 76801; 80053; 81001; 81025; 84702; 84703; 85025; 85610; 85730; 99284; A9270